=== PATIENT | male | born 1990 | race African-American/Black ===

== ENCOUNTER 2024-01-21 11:59 | Observation (INO) ==
[2024-01-21 12:23] VITALS: BMI 19.9
--- NOTE | 2024-01-21 12:26 | DR.ABDMALE ---
HPI Time seen Time Seen by Provider: 01/21/24 12:08 Complaint Chief Complaint Doctors Comments: 33-year-old male, currently an inmate, presents for evaluation. Patient with a history of peptic ulcer disease, has had a distant history of entrectomy and vagotomy in the past. Patient been off his pantoprazole past 2 to 3 weeks while incarcerated. Having increasing abdominal pain over the past few days, worsened today.. Pain located across the upper abdominal region radiates to the rest of the abdomen. Patient is sharp, constant. Worse with movement and palpation. Nothing makes it better. States he is passing dark red blood, and black stools. History of difficult pain for the patient as he is focused on receiving his pantoprazole and undergoing endoscopy to rule out peptic ulcer disease. Reviewed Nurses Notes Review: Yes Source History provided by:: patient Mode of arrival Mode of Arrival: Wheelchair PMH PM Past Medical History: Yes Past Medical History Comment: PUD Past Surgical History: Yes Family History Family Medical History: Diabetes Mellitus, Cancer, [place], Coronary Artery Disease and Hypertension Social History Do you use any recreational Drugs:: No ROS Review of Systems Constitutional: No Symptoms Reported Eyes: No Symptoms Reported ENTM: No Symptoms Reported Respiratoy: No Symptoms Reported Cardiovascular: No Symptoms Reported Gastrointestinal/Abdominal: See HPI Genitourinary: No Symptoms Reported Neurological: No Symptoms Reported Musculoskeletal: No Symptoms Reported Integumentary: No Symptoms Reported Hematologic/Lymphatic: No Symptoms Reported All Other Systems: Reviewed and Negative PE Vital Signs Vital Signs: Temp Pulse Resp BP Pulse Ox O2 Del Method 01/21/24 13:47 18 01/21/24 14:15 131/82 01/21/24 12:47 18 01/21/24 12:13 98.1 F 88 19 137/106 100 Room Air General General Appearance: Alert and In Distress (maintining position) Eyes Eye exam: PERRL and EOMI Neck Neck Exam: Normal Inspection Respiratory Respiratory Exam: Normal Lung Sounds Bilat; negative Accessory Muscle Use or Re spiratory Distress Cardiovascular Cardiovascular Exam: Regular Rate, Normal Rhythm and Normal Heart Sounds Abdominal Exam Abdominal Exam: Guarding (limited abd exam, due to noncompliance, + diffuse guar ding) Extremeties Extremities Exam: Normal Inspection and Full ROM Neurologic Neurological Exam: Alert, Oriented X3 and CN II-XII Intact; negative Motor Sensory Deficit Skin Skin Exam: Warm and Dry COURSE Treatment Treatment: 33 y/o male, currently an inmate, with worsening abdominal pain over the past several days. Patient not being cooperative. He is being belligerent and demanding, focused on receiving his pantoprazole and undergo an EGD. Explained to patient we will be giving to him IV as part of his workup and treatment for abdominal pain and history of peptic ulcer disease. Patient with potentially surgical abdomen at this present time, due to limited abdominal exam, due to noncompliant patient. Workup ordered. Patient given IV fluids, IV pantoprazole, p.o. GI cocktail/Carafate. 1401 -CBC, CMP, lipase all normal. Acute abdomen series performed, no free air, no evidence for bowel obstruction. Large amount of gas and stool throughout consistent with constipation. Discussed with surgery, Dr Cruz, recommends admission & scoping in am, in view of h/o surgery, presentation. Given dose of lactulose here. ROR Labs Reviewed Laboratory Results Reviewed?: Yes 01/21/24 12:43 01/21/24 12:43 Laboratory: WBC 4.4 X10^3/uL (3.6-10.0) 01/21/24 12:43 RBC 4.78 X10^6/uL (4.7-6.0) 01/21/24 12:43 Hgb 13.6 g/dL (13.5-18.0) 01/21/24 12:43 Hct 40.1 % (42.0-54.0) L 01/21/24 12:43 MCV 84.1 fL (80.0-100.0) 01/21/24 12:43 MCH 28.5 pg (27.0-34.0) 01/21/24 12:43 MCHC 34.0 g/dL (33.0-35.0) 01/21/24 12:43 RDW 14.6 % (11.6-16.5) 01/21/24 12:43 Plt Count 154 X10^3/uL (150.0-450.0) 01/21/24 12:43 MPV 8.5 fL (7.4-11.0) 01/21/24 12:43 Neut % (Auto) 36.9 % (42.0-75.0) L 01/21/24 12:43 Lymph % (Auto) 51.0 % (21.0-51.0) 01/21/24 12:43 [place] % (Auto) 9.6 % (0.0-13.0) 01/21/24 12:43 Eos % (Auto) 2.0 % (0.9-2.9) 01/21/24 12:43 Baso % (Auto) 0.5 % (0.2-1.0) 01/21/24 12:43 Neut # (Auto) 1.6 x10^3/uL (2.2-4.8) L 01/21/24 12:43 Lymph # (Auto) 2.2 X10^3/uL (1.3-2.9) 01/21/24 12:43 [place] # (Auto) 0.4 x10^3/uL (0.3-0.8) 01/21/24 12:43 Eos # (Auto) 0.1 x10^3/uL (0.0-0.2) 01/21/24 12:43 Baso # (Auto) 0.0 X10^3/uL (0.0-0.1) 01/21/24 12:43 Absolute Nucleated RBC 0.1 /100WBC 01/21/24 12:43 Sodium 142 mmol/L (136-145) 01/21/24 12:43 Corrected Sodium TNP 01/21/24 12:43 Potassium 4.1 mmol/L (3.5-5.1) 01/21/24 12:43 Chloride 104 mmol/L (98-107) 01/21/24 12:43 Carbon Dioxide 28.3 mmol/L (21-32) 01/21/24 12:43 BUN 10 mg/dL (7-18) 01/21/24 12:43 Creatinine 1.02 mg/dL (0.70-1.30) 01/21/24 12:43 Est GFR (MDRD) Af Amer > 60 (>60) 01/21/24 12:43 Est GFR (MDRD) Non-Af > 60 (>60) 01/21/24 12:43 Glucose 82 mg/dL (65-99) 01/21/24 12:43 Calcium 9.7 mg/dL (8.5-10.1) 01/21/24 12:43 Corrected Calcium TNP 01/21/24 12:43 Total Bilirubin 0.50 mg/dL (0.2-1.0) 01/21/24 12:43 AST 31 Units/L (15-37) 01/21/24 12:43 ALT 26 Units/L (12-78) 01/21/24 12:43 Alkaline Phosphatase 76 Units/L (46-116) 01/21/24 12:43 Total Protein 7.6 g/dL (6.4-8.2) 01/21/24 12:43 Albumin 4.1 g/dL (3.4-5.0) 01/21/24 12:43 Globulin 3.5 g/dL (2.5-4.5) 01/21/24 12:43 Albumin/Globulin Ratio 1.2 Ratio (1.1-2.1) 01/21/24 12:43 Lipase 31 Units/L (16-77) 01/21/24 12:43 Labs acceptble XRAY XRAY Interpreted by: Self X-ray Results: Acute abdomen series -no free air, no signs of obstruction. Large amount of gas and stool. Opioid Opioid Risk Tool Age (Fabian box if 16-45): No History of Preadolescent Sexual Abuse: No Total: 0 Total Score Risk Category: Low Risk Copyright: Tom BILLINGS predicting aberrant behaviors Discharge Plan Diagnosis Discharge Problem: Acute upper abdominal pain, H/O peptic ulcer Discharge Plan Patient Disposition: 09 ADMITTED INPATIENT Condition: Stable Health Concerns: Post Hospitalization: new medications and changes needed to prevent readmission or further decline. Pt educated and given instructions on all concerns. Plan of Treatment: Continue with present treatment and follow up plan. Pt is to keep follow up appointment as instructed and take medications as ordered. Orders to Discharge Patient Discharge Orders: Transfer (Routine); Ordered 01/21/24 Ordered By: Joe Santiago Follow ups/Referrals Follow ups/Referrals: [facility],None [Primary Care Provider] - 3 days
[2024-01-21] MEDS: CARAFATE PO ONE (12:47)
[2024-01-21] MEDS: LEVSIN/MAALOX/LIDOC VISC PO ONE (12:47)
[2024-01-21] MEDS: NS 1,000 ML IV 1,000 ML IV ONE (12:47)
[2024-01-21] MEDS: PROTONIX INJ 40 MG VIAL IVP ONE (12:53)
[2024-01-21 13:01] LABS: BASOPHILS % (AUTO) 0.5 % (0.2-1.0); EOSINOPHILS # (AUTO) 0.1 x10^3/uL (0.0-0.2); HEMATOCRIT 40.1 % (42.0-54.0); HEMOGLOBIN 13.6 g/dL (13.5-18.0); LYMPHOCYTES # (AUTO) 2.2 X10^3/uL (1.3-2.9); MEAN CORPUSCULAR HEMOGLOBIN 28.5 pg (27.0-34.0); MEAN CORPUSCULAR VOLUME 84.1 fL (80.0-100.0); MEAN PLATELET VOLUME 8.5 fL (7.4-11.0); MONOCYTES # (AUTO) 0.4 x10^3/uL (0.3-0.8); MONOCYTES % (AUTO) 9.6 % (0.0-13.0); NEUTROPHILS # (AUTO) 1.6 x10^3/uL (2.2-4.8); NEUTROPHILS % (AUTO) 36.9 % (42.0-75.0); PLATELET COUNT 154 X10^3/uL (150.0-450.0); RED BLOOD COUNT 4.78 X10^6/uL (4.7-6.0); RED CELL DISTRIBUTION WIDTH 14.6 % (11.6-16.5); WHITE BLOOD COUNT 4.4 X10^3/uL (3.6-10.0)
[2024-01-21 13:16] LABS: ALANINE AMINOTRANSFERASE 26 Units/L (12-78); ALBUMIN 4.1 g/dL (3.4-5.0); ALKALINE PHOSPHATASE 76 Units/L (46-116); ASPARTATE AMINO TRANSFERASE 31 Units/L (15-37); BLOOD UREA NITROGEN 10 mg/dL (7-18); CALCIUM 9.7 mg/dL (8.5-10.1); CARBON DIOXIDE 28.3 mmol/L (21-32); CHLORIDE 104 mmol/L (98-107); CREATININE 1.02 mg/dL (0.70-1.30); GLUCOSE 82 mg/dL (65-99); LIPASE 31 Units/L (16-77); POTASSIUM 4.1 mmol/L (3.5-5.1); SODIUM 142 mmol/L (136-145); TOTAL PROTEIN 7.6 g/dL (6.4-8.2); eGFR NON BLACK RACES > 60 (>60)
[2024-01-21] MEDS: CHRONULAC PO ONE (14:25)
--- NOTE | 2024-01-21 15:07 | RAD ---
EXAM: ACUTE ABDOMEN SERI ES HISTORY: ABD PAIN; COMPARISON: None FINDINGS: The cardiomediastinal silhouette is normal in size. No acute airspace disease. No pneumothorax or eff usion.No acute osseous abnormality in the thorax. Evaluation of the abdomen demonstrates a nonobstructive bowel gas pattern. Moderate colonic stool. no evidence of pneumoperitoneum. No pathologic soft tissue calcification. No acute osseous abnormality in the abdomen. IMPRESSION: 1. No acute cardiopulmonary process. 2. No acute abdominal process. THIS IS AN ELECTRONICALLY VERIFIED FINAL REPORT 01/21/2024 3:03 PM - Electronically signed by French Caro MD
[2024-01-21] MEDS: ZOFRAN INJ 4 MG VIAL IVP ONE (15:11)
[2024-01-21] MEDS: MORPHINE SULFATE INJ 4 MG IVP ONE (15:12)
[2024-01-21] MEDS ORDERED: CONSULT PHARMACY - POTASSIUM & MAGNESIUM XX SCH (15:43)
[2024-01-21] MEDS: D5 NS 1,000 ML IV 1,000 ML IV SCH (16:15)
[2024-01-21] MEDS: CARAFATE PO SCH (16:15)
[2024-01-21] MEDS: MORPHINE SULFATE INJ 4 MG IVP PRN (20:07)
[2024-01-21 20:47] LABS: BILIRUBIN,URINE NEGATIVE (NEGATIVE); BLOOD/HEMOGLOBIN,URINE NEGATIVE (NEGATIVE); GLUCOSE, URINE NEGATIVE (NEGATIVE); KETONES,URINE NEGATIVE (NEGATIVE); LEUKOCYTE ESTERASE ,URINE NEGATIVE (NEGATIVE); NITRITES,URINE NEGATIVE (NEGATIVE); PROTEIN,URINE NEGATIVE (NEGATIVE); UROBILINOGEN,URINE NORMAL (NORMAL)
[2024-01-21 20:49] LABS: APPEARANCE,URINE CLEAR (CLEAR); COLOR,URINE STRAW (YELLOW)
[2024-01-21] MEDS: TUMS PO SCH (21:09)
[2024-01-21] MEDS: HIBICLENS WASH EXT ONE (21:09)
[2024-01-21] MEDS: DILAUDID INJ IVP PRN (21:11)
[2024-01-21 23:35] VITALS: O2SAT 100
[2024-01-22] MEDS ORDERED: ZOFRAN INJ 4 MG VIAL IVP PRN (02:19)
[2024-01-22 06:35] LABS: BASOPHILS % (AUTO) 0.3 % (0.2-1.0); EOSINOPHILS % (AUTO) 0.4 % (0.9-2.9); HEMATOCRIT 37.4 % (42.0-54.0); HEMOGLOBIN 12.5 g/dL (13.5-18.0); LYMPHOCYTES # (AUTO) 1.2 X10^3/uL (1.3-2.9); LYMPHOCYTES % (AUTO) 27.3 % (21.0-51.0); MEAN CORPUSCULAR HEMOGLOBIN 28.3 pg (27.0-34.0); MEAN CORPUSCULAR HGB CONC 33.3 g/dL (33.0-35.0); MEAN CORPUSCULAR VOLUME 84.9 fL (80.0-100.0); MEAN PLATELET VOLUME 8.5 fL (7.4-11.0); MONOCYTES # (AUTO) 0.3 x10^3/uL (0.3-0.8); MONOCYTES % (AUTO) 6.7 % (0.0-13.0); NEUTROPHILS # (AUTO) 2.9 x10^3/uL (2.2-4.8); NEUTROPHILS % (AUTO) 65.3 % (42.0-75.0); PLATELET COUNT 135 X10^3/uL (150.0-450.0); RED BLOOD COUNT 4.41 X10^6/uL (4.7-6.0); RED CELL DISTRIBUTION WIDTH 14.5 % (11.6-16.5); WHITE BLOOD COUNT 4.4 X10^3/uL (3.6-10.0)
[2024-01-22 07:04] LABS: ALANINE AMINOTRANSFERASE 25 Units/L (12-78); ALBUMIN 3.7 g/dL (3.4-5.0); ALKALINE PHOSPHATASE 68 Units/L (46-116); ASPARTATE AMINO TRANSFERASE 31 Units/L (15-37); BLOOD UREA NITROGEN 4 mg/dL (7-18); CARBON DIOXIDE 30.2 mmol/L (21-32); CHLORIDE 104 mmol/L (98-107); CREATININE 0.82 mg/dL (0.70-1.30); GLUCOSE 103 mg/dL (65-99); POTASSIUM 4.9 mmol/L (3.5-5.1); SODIUM 141 mmol/L (136-145); TOTAL PROTEIN 7.1 g/dL (6.4-8.2); eGFR NON BLACK RACES > 60 (>60)
[2024-01-22] MEDS: LR 1,000 ML IV 1,000 ML IV ONE (08:40)
[2024-01-22] MEDS: DIPRIVAN VIAL 20 ML ONE ×2 (08:53→09:05)
[2024-01-22] MEDS: PROTONIX INJ 40 MG VIAL IVP SCH (10:09)
[2024-01-22 10:21] VITALS: RESP 18
[2024-01-22 10:22] VITALS: TEMP 98
[2024-01-22 10:25] VITALS: BP 126/78; PULSE 62
== END 2024-01-22 11:50 | disposition home or self-care (01) ==
LOC: MED/SURG 11:59 → ER 11:59 → MED/SURG 15:34
PROVIDERS: ADMIT Surgery; ATTEND Surgery
DX: R45.6 Violent behavior; R10.84 Generalized abdominal pain; Z98.890 Other specified postprocedural states; K29.60 Other gastritis without bleeding; Z87.11 Personal history of peptic ulcer disease